=== PATIENT | female | born 1975 | race African-American/Black ===

== ENCOUNTER 2024-05-03 00:38 | Emergency (ER) | payer MEDICAID ==
[~2024-05-03] VITALS: Ht 165.1 cm; Wt 77.0 kg
[2024-05-03 00:43] VITALS: O2SAT 98
[2024-05-03] MEDS: HYDROCODONE/ACETAMINOPHEN 5/325MG TABLET PO ONE ×2 (01:25→04:06)
[2024-05-03] MEDS ORDERED: HYDR-4009 MT (02:30)
[2024-05-03] MEDS: KETOROLAC 15MG/ML VIAL IM ONE (04:06)
[2024-05-03] MEDS ORDERED: MORPHINE SULFATE 4 MG/ML INJ (FOR IV/IM USE) IM ONE (04:45)
[2024-05-03] MEDS: FENTANYL CITRATE/PF 50MCG/ML 2ML VIAL IV ONE (05:00)
[2024-05-03] MEDS: ONDANSETRON HCL 4MG TABLET PO ONE (05:26)
[2024-05-03 06:25] VITALS: BP 126/74; PULSE 95; RESP 16; TEMP 98.4
== END 2024-05-03 06:25 | disposition home or self-care (01) ==
LOC: ER 00:38
DX: S42.302A Unspecified fracture of shaft of humerus, left arm, initial encounter for closed fracture (principal); W01.0XXA Fall on same level from slipping, tripping and stumbling without subsequent striking against object, initial encounter; Y93.89 Activity, other specified; Y92.89 Other specified places as the place of occurrence of the external cause; Y99.8 Other external cause status
CPT/HCPCS: 73030; 73060; 29105; 96372; 96374; 99284; J3010; Q0162; J1885; Z7610; A4565

== ENCOUNTER 2025-01-02 19:28 | Emergency (ER) | payer MEDICAID ==
[~2025-01-02] VITALS: Ht 165.1 cm; Wt 73.0 kg
[~2025-01-02 19:28] MED LIST: HYDR-4009 MT
[2025-01-02 19:40] VITALS: O2SAT 100
[2025-01-02] MEDS ORDERED: SODIUM CHLORIDE 0.9% 1,000 ML IV ONE (20:15)
[2025-01-02 20:55] LABS: CHLORIDE 102 mEq/L (98-107); POTASSIUM 3.2 mEq/L (3.5-5.1); SODIUM 139 mEq/L (136-145)
[2025-01-02 20:56] LABS: CLARITY URINE CLEAR (CLEAR); COLOR URINE YELLOW (YELLOW); GLUCOSE URINE TRACE (NEGATIVE); KETONES URINE 3+ (NEGATIVE); LEUKOCYTE ESTERASE URINE NEGATIVE (NEGATIVE); NITRITE URINE NEGATIVE (NEGATIVE); OCCULT BLOOD URINE NEGATIVE (NEGATIVE); PROTEIN URINE TRACE (NEGATIVE); SPECIFIC GRAVITY URINE 1.016 (1.005-1.030); UROBILINOGEN URINE 0.2 E.U./dL (0.2-1.0)
[2025-01-02 20:56] LABS: CALCIUM 9.8 mg/dL (8.7-10.4); CARBON DIOXIDE 25 mEq/L (21-32)
[2025-01-02 21:01] LABS: CREATININE 0.7 mg/dL (0.6-1.0); GLUCOSE 166 mg/dL (70-105)
[2025-01-02 21:02] LABS: UREA NITROGEN BLOOD 7 mg/dL (9-23)
[2025-01-02 21:03] LABS: ALANINE AMINOTRANSFERASE 9 IU/L (10-49); ALBUMIN 4.8 g/dL (3.2-4.8); ASPARTATE AMINOTRANSFERASE 19 IU/L (<34); BILIRUBIN DIRECT 0.1 mg/dL (<=3.0)
[2025-01-02 21:04] LABS: BILIRUBIN TOTAL 0.5 mg/dL (0.1-1.0); PROTEIN TOTAL 8.2 g/dL (6.0-8.3)
[2025-01-02 21:06] LABS: PROTHROMBIN TIME 10.9 sec (9.6-11.0)
[2025-01-02 21:09] LABS: *AMPHETAMINES SCREEN URINE NEGATIVE (NEGATIVE); *BARBITURATES SCREEN URINE NEGATIVE (NEGATIVE); *BENZODIAZEPINES SCREEN URINE NEGATIVE (NEGATIVE); *COCAINE SCREEN URINE NEGATIVE (NEGATIVE); CANNABINOID URINE SCREEN PRESUMPTIVE POSITIVE (NEGATIVE); METHADONE URINE SCREEN NEGATIVE (NEGATIVE); OPIATES URINE SCREEN NEGATIVE (NEGATIVE); PHENCYCLIDINE URINE SCREEN NEGATIVE (NEGATIVE)
[2025-01-02 21:10] LABS: ECSTASY MDMA SCREEN URINE NEGATIVE (NEGATIVE)
[2025-01-02 21:10] LABS: HCG SCREEN NEGATIVE
[2025-01-02] MEDS: HALOPERIDOL LACTATE 5MG/ML VIAL IM ONE (21:10)
[2025-01-02 21:11] LABS: BASOPHILS % 0.2 % (0.0-2.0); HEMATOCRIT. 29.8 % (36.0-48.0); LYMPHOCYTES % 8.9 % (20.0-50.0); MEAN CORPUSCULAR HEMOGLOBIN 20.1 pg (28.0-32.0); MEAN CORPUSCULAR HGB CONC 30.1 g/dL (31.0-37.0); MEAN CORPUSCULAR VOLUME 66.6 fL (81.0-99.0); MEAN PLATELET VOLUME 8.8 fl (7.4-10.4); MONOCYTES % 2.7 % (2.0-8.0); NEUTROPHILS % 88.2 % (40.0-76.0); PLATELET 398 x1000/uL (130-400); RED BLOOD CELL COUNT 4.48 mill/uL (4.2-5.4); RED CELL DISTRIBUTION WIDTH 19.1 % (11.6-14.6); WHITE BLOOD COUNT 8.7 x1000/uL (4.5-11.0)
[2025-01-02 21:15] LABS: ADD RBC MORPHOLOGY YES; DIFFERENTIAL COMMENT 1
[2025-01-02 21:18] LABS: ETHANOL BLOOD < 10 mg/dL (<10)
[2025-01-02 21:30] LABS: BACTERIA URINE 1+; RBC URINE NONE SEEN /hpf (0-2); SQUAMOUS EPITHELIAL CELL URINE FEW /lpf (RARE/1+); WBC URINE 0-2 /hpf (0-2)
[2025-01-02] MEDS ORDERED: POTASSIUM CHLORIDE 20MEQ/PACKET PO ONE (21:45)
[2025-01-02] MEDS ORDERED: ONDA4TAB50 MT (22:44)
[2025-01-02] MEDS ORDERED: OMEP40CA20 MT (22:44)
[2025-01-02] MEDS ORDERED: KETOROLAC 15MG/ML VIAL IV ONE (22:45)
[2025-01-02] MEDS: ONDANSETRON HCL 4MG/2ML INJ IV STA (23:12)
[2025-01-02] MEDS ORDERED: ONDANSETRON HCL 4MG/2ML INJ IV NR (23:15)
[2025-01-03 00:52] VITALS: BP 179/63; PULSE 65; RESP 20; TEMP 36.8; O2SAT 100
[2025-01-03 02:33] LABS: ANISOCYTOSIS 1+; HYPOCHROMASIA 2+; MICROCYTOSIS 3+; OVALOCYTES 1+; PLATELET ESTIMATE NORMAL
== END 2025-01-03 00:53 | disposition home or self-care (01) ==
LOC: ER 19:28
DX: R10.84 Generalized abdominal pain (principal); E87.1 Hypo-osmolality and hyponatremia; Z79.899 Other long term (current) drug therapy
CPT/HCPCS: 80076; 80305; 80048; 81003; 80320; 84703; 83690; 85025; 85610; 36415; 74176; 96372; 96374; 99285; J1630; J2405; J7030; Z7610 ×4; C1893; A4606; G0480

== ENCOUNTER 2025-03-16 21:06 | Emergency (ER) | payer MEDICAID ==
[~2025-03-16] VITALS: Ht 165.1 cm; Wt 68.0 kg
[~2025-03-16 21:06] MED LIST changes: +OMEP40CA20 MT; +ONDA4TAB50 MT
[2025-03-16 21:09] VITALS: O2SAT 99
[2025-03-16] MEDS: SODIUM CHLORIDE 0.9% 1,000 ML IV ONE (21:54)
[2025-03-16] MEDS: KETOROLAC 30MG/ML VIAL IV STA (21:54)
[2025-03-16] MEDS: ONDANSETRON HCL 4MG/2ML INJ IV STA ×2 (21:54→23:15)
[2025-03-16 22:41] LABS: CHLORIDE 102 mEq/L (98-107); POTASSIUM 3.5 mEq/L (3.5-5.1); SODIUM 138 mEq/L (136-145)
[2025-03-16 22:42] LABS: CALCIUM 10.2 mg/dL (8.7-10.4); CARBON DIOXIDE 25 mEq/L (21-32)
[2025-03-16 22:45] LABS: HEMATOCRIT. 31.7 % (36.0-48.0); HEMOGLOBIN. 9.8 g/dL (12.0-16.0); MEAN CORPUSCULAR HEMOGLOBIN 19.5 pg (28.0-32.0); MEAN CORPUSCULAR HGB CONC 30.9 g/dL (31.0-37.0); MEAN CORPUSCULAR VOLUME 63.1 fL (81.0-99.0); PLATELET 447 x1000/uL (130-400); RED BLOOD CELL COUNT 5.02 mill/uL (4.2-5.4); RED CELL DISTRIBUTION WIDTH 19.3 % (11.6-14.6); WHITE BLOOD COUNT 9.7 x1000/uL (4.5-11.0)
[2025-03-16 22:46] LABS: CREATININE 0.8 mg/dL (0.6-1.0); DIFFERENTIAL COMMENT 1
[2025-03-16 22:47] LABS: GLUCOSE 146 mg/dL (70-105); UREA NITROGEN BLOOD 9 mg/dL (9-23)
[2025-03-16 22:50] LABS: PROTHROMBIN TIME 10.9 sec (9.6-11.0)
[2025-03-16 22:53] LABS: HCG SCREEN NEGATIVE
[2025-03-16 22:58] LABS: PLATELET ESTIMATE INCREASED
[2025-03-16 22:59] LABS: ANISOCYTOSIS 1+; HYPOCHROMASIA 2+; MICROCYTOSIS 3+
[2025-03-16] MEDS: PANTOPRAZOLE SODIUM 40 MG/VIAL IV STA (23:16)
[2025-03-17 01:10] VITALS: BP 168/76; PULSE 58; RESP 18; TEMP 36.8; O2SAT 99
[2025-03-17] MEDS ORDERED: FAMO40TA70 MT (02:45)
[2025-03-17] MEDS ORDERED: IBUP-2029 MT (02:45)
[2025-03-17] MEDS ORDERED: ONDA-239 PO (02:45)
[2025-03-17] MEDS ORDERED: DOCU50CA11 MT (02:55)
[2025-03-17] MEDS ORDERED: FERR325T23 MT (02:55)
[2025-03-17] MEDS ORDERED: OMEP40CA20 MT (02:55)
[2025-03-18] MEDS ORDERED: METO-293 MT (16:59)
== END 2025-03-17 03:48 | disposition home or self-care (01) ==
LOC: ER 21:06
DX: A08.4 Viral intestinal infection, unspecified (principal); K21.9 Gastro-esophageal reflux disease without esophagitis; D50.9 Iron deficiency anemia, unspecified; D75.839 Thrombocytosis, unspecified; Z79.899 Other long term (current) drug therapy
CPT/HCPCS: 99285; 96365; 96375; 96361; 96366; 80048; 84703; 83690; 85025; 85610; 36415; 96376; 74176; J1885; J2405; J2470; J7030